=== PATIENT | male | born 1990 | race Caucasian/White ===

== ENCOUNTER 2025-06-03 09:17 | Emergency (ER) | payer BC ==
[~2025-06-03] VITALS: Ht 177.8 cm; Wt 79.0 kg
[2025-06-03 09:19] VITALS: TEMP 36.8; O2SAT 99
[2025-06-03] MEDS: ACETAMINOPHEN 325MG TABLET PO ONE (09:36)
[2025-06-03] MEDS ORDERED: TOPUD PO (10:54)
[2025-06-03 11:27] VITALS: BP 116/69; PULSE 75; RESP 18; O2SAT 100
== END 2025-06-03 11:37 | disposition home or self-care (01) ==
LOC: ER 09:17
DX: M54.9 Dorsalgia, unspecified (principal)
CPT/HCPCS: 72100; 99283